=== PATIENT | female | born 1985 | race Caucasian/White ===

== ENCOUNTER 2018-12-02 08:22 | Emergency (ER) | payer OTHER, MEDICAID ==
[~2018-12-02] VITALS: Ht 165.1 cm; Wt 70.3 kg
[2018-12-02] MEDS ORDERED: NORCO 5-325 TA1 EACH PO (09:01)
[2018-12-02 09:18] VITALS: BP 117/65
== END 2018-12-02 09:24 | disposition home or self-care (01) ==
LOC: M.ERS 08:22
DX: S66.221A Laceration of extensor muscle, fascia and tendon of right thumb at wrist and hand level, initial encounter (principal); W22.09XA Striking against other stationary object, initial encounter; Y93.89 Activity, other specified; Y92.89 Other specified places as the place of occurrence of the external cause; Y99.8 Other external cause status

== ENCOUNTER 2019-04-07 09:37 | Emergency (ER) | payer OTHER, MEDICAID ==
[~2019-04-07] VITALS: Ht 160 cm; Wt 72.6 kg
[~2019-04-07 09:37] MED LIST: NORCO 5-325 TA1 EACH PO
[2019-04-07] MEDS ORDERED: FLEXERIL PO (11:18)
[2019-04-07 11:40] VITALS: BP 116/69
== END 2019-04-07 11:40 | disposition home or self-care (01) ==
LOC: M.ERS 09:37
DX: S06.0X0A Concussion without loss of consciousness, initial encounter (principal); F17.210 Nicotine dependence, cigarettes, uncomplicated; Z98.890 Other specified postprocedural states; W22.8XXA Striking against or struck by other objects, initial encounter; Y93.89 Activity, other specified; Y92.89 Other specified places as the place of occurrence of the external cause; Y99.8 Other external cause status